=== PATIENT | female | born 1955 | race Caucasian/White ===

== ENCOUNTER 2021-10-16 09:06 | Day surgery (SDC) | payer OTHER ==
[2021-10-11 12:29] VITALS: BMI 29.6
[2021-10-16] MEDS: TROPICAMIDE 1% OPHTH SOLN 15 ML BOTTLE ONE ×3 (09:40→09:50)
[2021-10-16] MEDS: CYCLOPENTOLATE 2% OPHTH SOLN 2 ML BOTTLE ONE ×3 (09:40→09:50)
[2021-10-16] MEDS: CIPROFLOXACIN 0.3% EYE DROPS 5 ML BOTTLE ONE ×3 (09:40→09:50)
[2021-10-16] MEDS: PHENYLEPHRINE 2.5% OPHTH SOLN 15 ML BOTTLE ONE ×3 (09:40→09:50)
[2021-10-16] MEDS ORDERED: LIDOCAINE 1% P/F 10 MG/ML VIAL ONE (10:59)
[2021-10-16] MEDS ORDERED: TETRACAINE 0.5% OPHTH SOLN 2 ML BOTTLE ONE (10:59)
[2021-10-16] MEDS ORDERED: BSS (NA/CA/MG/K) BALANCED SALT SOLUTION OPHTH SOLN 15 ML BOTTLE ONE (10:59)
[2021-10-16] MEDS ORDERED: NEO/POLYMYX B SULF/DEXAMETH OPHTHALMIC 5ML BOTTLE ONE (11:00)
[2021-10-16] MEDS ORDERED: CARBACHOL 0.01% INTRA-OCULAR 1.5 ML VIAL ONE (11:00)
[2021-10-16] MEDS ORDERED: MIDAZOLAM HCL 2 MG/2 ML SINGLE DOSE VIAL ONE (11:07)
[2021-10-16] MEDS ORDERED: ERYTHROMYCIN 0.5% OPHTHALMIC OINTMENT 3.5 GM TUBE ONE (11:15)
[2021-10-16 11:41] VITALS: TEMP 97.9
[2021-10-16 12:00] VITALS: BP 144/90; PULSE 68
== END 2021-10-16 12:08 | disposition home or self-care (01) ==
LOC: FASU 09:06
PROVIDERS: ATTEND Ophthalmology
PROC: 08RJ3JZ Replacement of Right Lens with Synthetic Substitute, Percutaneous Approach (ICD-10-PCS; principal; 2021-10-16 11:11)
DX: H26.8 Other specified cataract (principal)

== ENCOUNTER 2021-11-13 08:05 | Day surgery (SDC) | payer OTHER ==
[2021-11-11 14:45] VITALS: BMI 29.6
[2021-11-13] MEDS: CIPROFLOXACIN 0.3% EYE DROPS 5 ML BOTTLE ONE ×3 (08:35→08:45)
[2021-11-13] MEDS: PHENYLEPHRINE 2.5% OPHTH SOLN 15 ML BOTTLE ONE ×3 (08:35→08:45)
[2021-11-13] MEDS: TROPICAMIDE 1% OPHTH SOLN 15 ML BOTTLE ONE ×3 (08:35→08:45)
[2021-11-13] MEDS: CYCLOPENTOLATE 2% OPHTH SOLN 2 ML BOTTLE ONE ×3 (08:35→08:45)
[2021-11-13] MEDS ORDERED: MIDAZOLAM HCL 2 MG/2 ML SINGLE DOSE VIAL ONE (10:10)
[2021-11-13 10:46] VITALS: TEMP 97.9
[2021-11-13 11:11] VITALS: BP 149/77; PULSE 80
== END 2021-11-13 11:35 | disposition home or self-care (01) ==
LOC: FASU 08:05
PROVIDERS: ATTEND Ophthalmology
PROC: 08RK3JZ Replacement of Left Lens with Synthetic Substitute, Percutaneous Approach (ICD-10-PCS; principal; 2021-11-13 09:30)
DX: H26.8 Other specified cataract (principal)